=== PATIENT | female | born 1985 | race Caucasian/White ===

== ENCOUNTER 2017-01-11 02:31 | Inpatient (IN) | payer BC ==
[~2017-01-11] VITALS: Ht 157.5 cm; Wt 58.1 kg
[~2017-01-11 02:31] MED LIST: SULF1TAB24 PO
--- NOTE | 2017-01-11 03:15 | PHYS DOC ---
General Stated Complaint: OVERDOSE Time Seen by MD: 03:01 Source: EMS Problems: History of Present Illness Initial Comments Patient here by EMS for possible overdose. Patient is lethargic and is unable to sit her known history. She will respond occasionally to voice as well as to pain with incomprehensible sounds. The only history obtained is per EMS. Per EMS by nursing staff, the patient was apparently acting strange at a [place] restaurant. Police were called, and upon some point she told him that she had been serving papers earlier today, and as a result taken 15 Seroquel at some point along the day. There is no information available regarding intent behind the overdose, or any other medications were taken. Unfortunate, there is no family or friends or provide any further information, and is no further information available by EMS. As noted, the patient herself is unable to participate her own history as well. As a result, I unable to obtain any additional information rare history of present illness, associated factors, increase or decrease in factors, her care rendered for this prior to arrival in the ER. Patient's past medical history is similarly unavailable. The only thing we do notice that she has a previous ER visit for cellulitis. Social history including smoking, alcohol, and drug use is unknown as well. Allergies: Coded Allergies: No Known Drug Allergies (Unverified , 12/02/16) Past Medical History Medical History: no pertinent history Social History Smoker: other Alcohol: other Drugs: other Review of Systems All Other Systems: Reviewed and Negative (Note that review of systems cannot be obtained due to patient's altered level of consciousness.) Physical Exam General Appearance: WD/WN, no apparent distress Eyes: bilateral eye PERRL, bilateral eye normal inspection Ear, Nose, Throat: normal ENT inspection, normal pharynx Neck: full range of motion, supple, normal inspection Respiratory: lungs clear, normal breath sounds, no respiratory distress Cardiovascular: regular rate, rhythm, no edema Gastrointestinal: non tender, soft, no organomegaly Back: no CVA tenderness, no vertebral tenderness Extremities: non-tender, normal inspection Neurologic/Psychiatric: no motor/sensory deficits Skin: normal color Lymphatic: no adenopathy Comments Generally this is an unkept female in no acute distress. Vitals are as noted. Pertinent findings on physical exam shows the nose and ears are clear. Head is atraumatic and normocephalic. Pupils are midpoint and sluggishly reactive bilaterally. She does not participate in EOM testing. Gag reflex is active to tongue blade. Neck is supple without adenopathy or JVD. There's no meningeal signs. Chest is clear and cardiac exams unremarkable. The abdomen is soft and nontender without masses or megaly. Back shows no obvious trauma or CVA tenderness. Shows show no rash cyanosis or signs of trauma. Neurologic exam finds the patient to be sedated. She will occasionally respond to voice with a calm principal sounds. She does respond to painful stimuli with incomprehensible sounds in both focused and generalized responses. She is not responsive to commands. She keeps her eyes closed but opens to voice and pain. Her overall GCS is estimated at 12. Remainder of physical exam is clinically unremarkable. Orders, Labs, Meds Old charts note a single prior ER visit for cellulitis. EKG shows sinus 100. Normal axis. No acute ST or T-wave changes. Possible early right bundle branch block. Labs today show a stable CBC and chem profile. Urine drug screen is positive for opiates and methamphetamine. She is negative for alcohol. Chest x-ray shows appears to be somewhat rotated film, but does have a suggestion of a right upper lobe early infiltrate per the emergency physician. CT scan of the head shows no acute changes per radiology. 0430 Patient is rousing better now. She arouses to voice without difficulty. She is able tell me a little bit more the story. Apparently the police came to get her placed her under arrest. She stated that she tried to ask him not to arrest her as she was supposed to go to a rehabilitation facility after being on the wait list for 3 weeks. Apparently while the police were talking to a tractor driver, she reached into her purse and took her Seroquel. She is now drowsy but arouses easily to voice. She is oriented person place and month and year. She appears to be in no acute discomfort distress. Is my understanding that upon release, the police will still want to take her into custody. She does seem to be improving, and I suspect it was several more hours of observation she'll be able to be up on her feet and able to be discharged. However, I'm concerned by the presence of what appears to be right upper lobe infiltrate, at some point while she was lethargic she may have had a small aspiration pneumonitis. I think is reasonable to keep her for observation, though I suspect given her lack of respiratory symptoms this time she'll probably do well and be able to be discharged later today. I'll go ahead and get her started on initial dose of antibiotics here in the ER in case she does have aspiration pneumonia. I discussed the case with Dr. Clarke of the hospitalist service who graciously agrees to accept the patient to his care. I written initial holding orders to include appropriate antibiotic for aspiration pneumonitis as well as pulmonary hygiene. It's my understanding please do want to be notified prior to discharge the patient as she is still pending arrest. The patient is resting comfortably at this time awaiting transfer to the floor and hospitalist care. LITO HALL MD Jan 11, 2017 03:15
[2017-01-11 03:35] LABS: BASO % 1 % (0-3); EOS # 0.1 x10^3/uL (0.0-0.7); EOS % 2 % (0-3); HEMATOCRIT 31.7 % (36.0-47.0); HEMOGLOBIN 10.5 g/dL (12.0-15.5); LYMPH # 2.8 x10^3/uL (1.0-4.8); LYMPH % 38 % (24-48); MEAN CORPUSCULAR HEMOGLOBIN 30 pg (25-35); MEAN CORPUSCULAR HGB CONC 33 g/dL (31-37); MEAN CORPUSCULAR VOLUME 91 fL (79-100); MONO # 0.6 x10^3/uL (0.0-1.1); MONO % 8 % (0-9); NEUT # 3.8 x10^3uL (1.8-7.7); NEUT % 51 % (31-73); PLATELET COUNT 396 x10^3/uL (140-400); RED BLOOD COUNT 3.47 x10^6/uL (3.50-5.40); RED CELL DISTRIBUTION WIDTH 14.5 % (11.5-14.5); WHITE BLOOD COUNT 7.4 x10^3/uL (4.0-11.0)
[2017-01-11 03:41] LABS: BILIRUBIN,URINE NEG (NEG); CLARITY,URINE HAZY; COLOR,URINE YELLOW; GLUCOSE,URINE NEG (NEG); NITRITE,URINE POS (NEG); UROBILINOGEN,URINE 0.2 mg/dL (0.2 mg/dL)
[2017-01-11 03:42] LABS: BACTERIA,URINE MANY /HPF (0-FEW); RBC,URINE 0 /HPF (0-2); SQUAMOUS EPITHELIAL CELL,UR FEW /LPF
[2017-01-11 03:51] LABS: BARBITURATES NEG (NEG); BENZODIAZEPINES NEG (NEG); CANNABINOIDS NEG (NEG); COCAINE NEG (NEG); METHADONE NEG (NEG); OPIATES POS (NEG); PHENCYCLIDINE NEG (NEG)
--- NOTE | 2017-01-11 03:52 | EKG ---
[address] [address] Test Date: 2017-01-11 Test Time: 03:50:56 Pat Name: EDILSON LORA Department: Room: Gender: F Feeder/Folder: : 1985 Requested By: LITO HALL Order Number: [id number] Reading MD: Measurements Intervals [place] Rate: 97 P: 59 TN: 156 QRS: 48 QRSD: 84 T: 48 QT: 374 QTc: 479 Interpretive Statements SINUS RHYTHM INCOMPLETE RIGHT BUNDLE BRANCH BLOCK QRS(T) CONTOUR ABNORMALITY CONSIDER ANTEROLATERAL MYOCARDIAL DAMAGE PROLONGED QT POSSIBLY ABNORMAL ECG RI6.01 Unconfirmed report No previous ECG available for comparison
[2017-01-11 03:56] LABS: ACETAMIN < 2.0 mcg/mL (10-30); AMPHETAMINE/METHAMPHETAMINE POS (NEG); ETHANOL < 10 mg/dL (0-10)
--- NOTE | 2017-01-11 03:56 | RAD ---
Examination: CT head without contrast History: History of fall from mental status, overdose COMPARISON 04/05/2012 Findings: There is no evidence of midline shift. There is no acute intracranial bleed or extra-axial fluid collection identified. The mao-white matter differentiation is maintained. The visualized lateral ventricles , 3rd ventricle, 4th ventricle appropriate for age. The basal cisterns are not effaced. The visualized paranasal sinuses, mastoid air cells are clear. Impression: No acute intracranial findings. Electronically signed by: Foreign Freeman (Jan 11, 2017 03:54:28)
[2017-01-11 03:57] LABS: ALBUMIN 2.7 g/dL (3.4-5.0); ALBUMIN/GLOBULIN RATIO 0.7 (1.0-1.7); CALCIUM 8.3 mg/dL (8.5-10.1); CREATININE 0.7 mg/dL (0.6-1.0); GFR 96.4; POTASSIUM 3.9 mmol/L (3.5-5.1); TOTAL BILIRUBIN 0.1 mg/dL (0.2-1.0); TOTAL PROTEIN 6.6 g/dL (6.4-8.2)
[2017-01-11] MEDS ORDERED: IV NORMAL SALINE 1,000ML 1,000 ML IV ONE (04:00)
[2017-01-11 06:20] VITALS: BP 119/73
[2017-01-11 07:15] VITALS: BP 117/78
[2017-01-11] MEDS ORDERED: IV DEXTROSE 5% - 0.9 % NACL 1,000 ML IV SCH (07:30)
[2017-01-11] MEDS ORDERED: DIPHENHYDRAMINE HCL 25 MG CAPSULE PO PRN (07:30)
[2017-01-11] MEDS ORDERED: ONDANSETRON PF 4 MG/2 ML VIAL. IV PRN (07:30)
[2017-01-11] MEDS ORDERED: IPRATRPIUM/ALBUTEROL 0.5/2.5MG 3 ML NEBU. NEB SCH (08:00)
[2017-01-11 08:56] VITALS: BP 123/90
--- NOTE | 2017-01-11 09:06 | PDOC ---
Exam Juancarlos Demential Exam: Juancarlos Note: Please also refer to the separate dictated note~for this date of service dictated separately.~Patient seen individually. Discussed the patient with Nursing staff reviewed the chart.~Reviewed interim history and current functioning. Reviewed vital signs,~Labs/ Radiology~and current medications noted below. Continue current treatment with the changes noted in the dictated addendum note Assessment: Vital Signs: Vital Signs Date Time Temp Pulse Resp B/P Pulse Ox O2 Delivery O2 Flow Rate FiO2 01/11/17 08:56 107 20 123/90 100 Room Air 01/11/17 07:15 98.3 Labs: Laboratory Tests Test 01/11/17 03:10 01/11/17 03:20 White Blood Count 7.4x10^3/uL (4.0-11.0) Red Blood Count 3.47x10^6/uL (3.50-5.40) L Hemoglobin 10.5g/dL (12.0-15.5) L Hematocrit 31.7% (36.0-47.0) L Mean Corpuscular Volume 91fL (79-100) Mean Corpuscular Hemoglobin 30pg (25-35) Mean Corpuscular Hemoglobin Concent 33g/dL (31-37) Red Cell Distribution Width 14.5% (11.5-14.5) Platelet Count 396x10^3/uL (140-400) Neutrophils (%) (Auto) 51% (31-73) Lymphocytes (%) (Auto) 38% (24-48) Monocytes (%) (Auto) 8% (0-9) Eosinophils (%) (Auto) 2% (0-3) Basophils (%) (Auto) 1% (0-3) Neutrophils # (Auto) 3.8x10^3uL (1.8-7.7) Lymphocytes # (Auto) 2.8x10^3/uL (1.0-4.8) Monocytes # (Auto) 0.6x10^3/uL (0.0-1.1) Eosinophils # (Auto) 0.1x10^3/uL (0.0-0.7) Basophils # (Auto) 0.0x10^3/uL (0.0-0.2) Sodium Level 143mmol/L (136-145) Potassium Level 3.9mmol/L (3.5-5.1) Chloride Level 107mmol/L (98-107) Carbon Dioxide Level 33mmol/L (21-32) H Anion Gap 3 (6-14) L Blood Urea Nitrogen 8mg/dL (7-20) Creatinine 0.7mg/dL (0.6-1.0) Estimated GFR (Cockcroft-Gault) 96.4 BUN/Creatinine Ratio 11 (6-20) Glucose Level 98mg/dL (70-99) Lactic Acid Level 1.1mmol/L (0.4-2.0) Calcium Level 8.3mg/dL (8.5-10.1) L Total Bilirubin 0.1mg/dL (0.2-1.0) L Aspartate Amino Transferase (AST) 16U/L (15-37) Alanine Aminotransferase (ALT) 17U/L (14-59) Alkaline Phosphatase 84U/L (46-116) Ammonia 25mcmol/L (11-34) Creatine Kinase 45U/L (26-192) Creatine Kinase MB (Mass) 0.7ng/mL (0.0-3.6) Creatine Kinase MB Relative Index 1.6% (0-4) Troponin I Quantitative < 0.017ng/mL (0-0.055) Total Protein 6.6g/dL (6.4-8.2) Albumin 2.7g/dL (3.4-5.0) L Albumin/Globulin Ratio 0.7 (1.0-1.7) L Urine Opiates Screen Pos (NEG) Urine Methadone Screen Neg (NEG) Acetaminophen Level < 2.0mcg/mL (10-30) L Acetaminophen Last Dose Date Unknown Acetaminophen Last Dose Time Unknown Urine Barbiturates Neg (NEG) Urine Phencyclidine Screen Neg (NEG) Urine Amphetamine/Methamphetamine Pos (NEG) Urine Benzodiazepines Screen Neg (NEG) Urine Cocaine Screen Neg (NEG) Urine Cannabinoids Screen Neg (NEG) Ethyl Alcohol Level < 10mg/dL (0-10) Urine Ethyl Alcohol Neg (NEG) Acetone Level Neg (NEG) Urine Collection Type U cath Urine Color Yellow Urine Clarity Hazy Urine pH 6.5 Urine Specific [place] 1.020 Urine Protein Neg (NEG-TRACE) Urine Glucose (UA) Negmg/dL (NEG) Urine Ketones (Stick) Negmg/dL (NEG) Urine Blood Neg (NEG) Urine Nitrite Pos (NEG) Urine Bilirubin Neg (NEG) Urine Urobilinogen Dipstick 0.2mg/dL (0.2 mg/dL) Urine Leukocyte Esterase Trace (NEG) Urine RBC 0/HPF (0-2) Urine WBC 5-10/HPF (0-4) Urine Squamous Epithelial Cells Few/LPF Urine Bacteria Many/HPF (0-FEW) Current Medications: Meds: Current Medications Sodium Chloride (Iv Sodium Chloride 0.9% 1,000ml) 1,000 ml @ 1,000 mls/hr 1X ONCE IV Last administered on 01/11/17 03:25; Start 01/11/17 at 04:00; Stop at 04:59; Status DC Ondansetron HCl (Zofran) 4 mg PRN Q8HRS PRN IV NAUSEA/VOMITING; Start 01/11/17 at 07:30 Diphenhydramine HCl 25 mg 25 mg PRN Q6HRS PRN PO SEE COMMENTS; Start 01/11/17 at 07:30 Dextrose/Sodium Chloride (Iv D5% - NS) 1,000 ml @ 200 mls/hr Q5H IV Last administered on 01/11/17 08:07; Start 01/11/17 at 07:30 Albuterol/ Ipratropium (Duoneb) 3 ml RTQID NEB ; Start 01/11/17 at 08:00 Active Scripts Active Bactrim Ds Tablet (Sulfamethoxazole/Trimethoprim) 1 Each Tablet 1 Tab PO BID Diagnosis: Problems: (1) Overdose ZAINA DOE MD Jan 11, 2017 09:05
--- NOTE | 2017-01-11 09:45 | RAD ---
AP chest, 01/11/2017: History: Overdose, altered level of consciousness Comparison is made to a study from 06/20/2012. The patient is rotated to the right. The heart size and pulmonary vascularity are normal. There is moderate infiltrate along the superior aspect of the right hilum. The left lung is clear. There is no evidence of pleural fluid or pneumothorax. IMPRESSION: Right upper lobe infiltrate suggesting pneumonia
== END 2017-01-11 11:05 | disposition left against medical advice (07) | DRG 918 ==
LOC: ER 02:31 → ICU 05:00 → OBSVTOIN 11:04
PROVIDERS: ADMIT Internal Medicine; ATTEND Internal Medicine
DX: T43.592A Poisoning by other antipsychotics and neuroleptics, intentional self-harm, initial encounter (principal); Y92.89 Other specified places as the place of occurrence of the external cause; F17.200 Nicotine dependence, unspecified, uncomplicated
CPT/HCPCS: 36415; 70450; 71010; 80053; 81001; 82010; 82140; 82553; 83605; 84443; 84484; 85027; 87641; 93005; 96374; G0378; G0379; G0480; G0481; J7042; Q0163; 99285-25; J7030